=== PATIENT | male | born 1965 | race Two or more races ===

== ENCOUNTER → 2018-11-01 | Outpatient (CLI) | payer OTHER | LOC: FIMAGING 08:44 | PROVIDERS: ATTEND Physician Assistant Medical | DX: Z03.89 Encounter for observation for other suspected diseases and conditions ruled out (principal) | CPT/HCPCS: 78320; A9503 ==

== ENCOUNTER → 2018-11-05 | Outpatient (CLI) | payer OTHER | LOC: FIMAGING 12:34 | PROVIDERS: ATTEND Physician Assistant Medical | DX: M89.9 Disorder of bone, unspecified (principal) ==

== ENCOUNTER → 2018-11-08 | Outpatient (CLI) | payer OTHER | LOC: EMCIMAGING 12:50 | PROVIDERS: ATTEND Physician Assistant Medical | DX: R93.7 Abnormal findings on diagnostic imaging of other parts of musculoskeletal system (principal); M16.0 Bilateral primary osteoarthritis of hip; M51.36 Other intervertebral disc degeneration, lumbar region | CPT/HCPCS: 72197-PN ==